=== PATIENT | female | born 1990 | race Caucasian/White ===

== ENCOUNTER → 2016-09-25 | Outpatient (REF) | payer OTHER ==
[~2016-09-25] MED LIST: ACET50TA PO; IBUP600T26 PO; MOTRIN; PERCOCET PO; PRENTAB9 PO
[2016-09-25 13:59] LABS: BASO % 0.5 % (0.0-1.0); EOS # 0.1 K/mm3 (0.0-0.50); EOS % 3.2 % (0.0-3.0); LARGE UNSTAINED CELL # 0.1 K/mm3 (0.0-0.4); LYMPH # 1.2 K/mm3 (1.5-6.5); LYMPH % 28.2 % (24.0-44.0); MEAN CORPUSCULAR HEMOGLOBIN 30.3 pg (27.0-33.0); MEAN CORPUSCULAR HGB CONC 33.8 g/dl (32.0-36.5); MEAN CORPUSCULAR VOLUME 89.7 fl (80.0-96.0); MONO # 0.2 K/mm3 (0.0-0.8); MONO % 5.8 % (0.0-5.0); NEUTROPHILS # 2.5 K/mm3 (1.8-7.7); NEUTROPHILS % 60.2 % (36.0-66.0); PLATELET COUNT, AUTOMATED 274 k/mm3 (150-450); RED CELL DISTRIBUTION WIDTH 12.1 % (11.5-14.5); WHITE BLOOD COUNT 4.1 K/mm3 (4.0-10.0)
[2016-09-26 12:45] LABS: HBsAg Prenatal NEGATIVE (NEGATIVE)
[2016-09-26 12:46] LABS: HIV SCREEN CENTAUR NEGATIVE (NEGATIVE)
== END ==
LOC: M LABDRWAD 12:13
PROVIDERS: ATTEND Advanced Practice Midwife
DX: Z34.81 Encounter for supervision of other normal pregnancy, first trimester (principal); Z36 Encounter for antenatal screening of mother

== ENCOUNTER 2016-10-24 18:46 | Emergency (ER) | payer OTHER ==
[~2016-10-24] VITALS: Ht 167.6 cm; Wt 54.0 kg
[2016-10-24] MEDS ORDERED: NS 1,000 ML IV ONE (20:15)
[2016-10-24] MEDS ORDERED: METOCLOPRAMIDE INJ 10MG/2ML VIAL (J2765) IV ONE (20:15)
[2016-10-24 20:48] LABS: BASO % 0.1 % (0.0-1.0); EOS % 0.4 % (0.0-3.0); LARGE UNSTAINED CELL % 0.4 % (0.0-4.0); LYMPH # 0.9 K/mm3 (1.5-6.5); LYMPH % 8.7 % (24.0-44.0); MEAN CORPUSCULAR HEMOGLOBIN 30.1 pg (27.0-33.0); MEAN CORPUSCULAR HGB CONC 34.2 g/dl (32.0-36.5); MEAN CORPUSCULAR VOLUME 88.1 fl (80.0-96.0); MONO # 0.2 K/mm3 (0.0-0.8); MONO % 2.4 % (0.0-5.0); NEUTROPHILS # 8.3 K/mm3 (1.8-7.7); NEUTROPHILS % 87.9 % (36.0-66.0); PLATELET COUNT, AUTOMATED 306 k/mm3 (150-450); RED CELL DISTRIBUTION WIDTH 12.3 % (11.5-14.5); WHITE BLOOD COUNT 9.4 K/mm3 (4.0-10.0)
[2016-10-24 21:10] LABS: ALBUMIN 3.6 GM/DL (3.2-5.2); ALBUMIN/GLOBULIN RATIO 1.06 (1.00-1.93); ALKALINE PHOSPHATASE 62 U/L (45-117); ALT/SGPT 20 U/L (12-78); AMYLASE 36 U/L (25-115); ANION GAP 11 MEQ/L (8-16); AST/SGOT 13 U/L (15-37); BILIRUBIN,DIRECT 0.2 MG/DL (0.0-0.2); BILIRUBIN,TOTAL 0.7 MG/DL (0.2-1.0); BLOOD UREA NITROGEN 11 MG/DL (7-18); CALCIUM LEVEL 9.1 MG/DL (8.5-10.1); CARBON DIOXIDE LEVEL 24 MEQ/L (21-32); CHLORIDE LEVEL 103 MEQ/L (98-107); CREATININE FOR GFR 0.73 MG/DL (0.55-1.02); GLOMERULAR FILTRATION RATE > 60.0 (>60); GLUCOSE, FASTING 101 MG/DL (70-105); POTASSIUM SERUM 3.8 MEQ/L (3.5-5.1); SODIUM LEVEL 138 MEQ/L (136-145)
[2016-10-24] MEDS ORDERED: REGL10TA6 PO (21:34)
[2016-10-24 21:46] VITALS: BP 91/57
== END 2016-10-24 21:52 | disposition home or self-care (01) ==
LOC: M ED 19:41
DX: R11.2 Nausea with vomiting, unspecified (principal); R19.7 Diarrhea, unspecified; I48.91 Unspecified atrial fibrillation; Z87.440 Personal history of urinary (tract) infections; Z88.2 Allergy status to sulfonamides; Z79.899 Other long term (current) drug therapy
CPT/HCPCS: 80048; 80076; 81001; 82150; 83690; 85025; 87086; 96374; 99282; J2765

== ENCOUNTER 2016-11-07 19:59 | Emergency (ER) | payer OTHER ==
[~2016-11-07] VITALS: Ht 170.2 cm; Wt 52.6 kg
[~2016-11-07 19:59] MED LIST changes: +REGL10TA6 PO
[2016-11-07] MEDS ORDERED: NS 1,000 ML IV ONE ×2 (20:30→21:45)
[2016-11-07] MEDS ORDERED: ACETAMINOPHEN TAB 650MG DOSE (2X325MG) PO ONE (20:30)
[2016-11-07] MEDS ORDERED: METOCLOPRAMIDE INJ 10MG/2ML VIAL (J2765) IV ONE (21:00)
[2016-11-07 21:12] LABS: BASO % 0.2 % (0.0-1.0); EOS % 0.7 % (0.0-3.0); LARGE UNSTAINED CELL # 0.1 K/mm3 (0.0-0.4); LARGE UNSTAINED CELL % 1.2 % (0.0-4.0); LYMPH # 0.4 K/mm3 (1.5-6.5); LYMPH % 6.9 % (24.0-44.0); MEAN CORPUSCULAR HEMOGLOBIN 30.9 pg (27.0-33.0); MEAN CORPUSCULAR HGB CONC 35.9 g/dl (32.0-36.5); MEAN CORPUSCULAR VOLUME 86.1 fl (80.0-96.0); MONO # 0.2 K/mm3 (0.0-0.8); MONO % 4.3 % (0.0-5.0); NEUTROPHILS # 4.2 K/mm3 (1.8-7.7); NEUTROPHILS % 86.7 % (36.0-66.0); PLATELET COUNT, AUTOMATED 177 k/mm3 (150-450); RED CELL DISTRIBUTION WIDTH 12.5 % (11.5-14.5); WHITE BLOOD COUNT 4.8 K/mm3 (4.0-10.0)
[2016-11-07 21:33] LABS: ANION GAP 9 MEQ/L (8-16); BLOOD UREA NITROGEN 8 MG/DL (7-18); CALCIUM LEVEL 8.3 MG/DL (8.5-10.1); CARBON DIOXIDE LEVEL 25 MEQ/L (21-32); CHLORIDE LEVEL 100 MEQ/L (98-107); CREATININE FOR GFR 0.71 MG/DL (0.55-1.02); GLOMERULAR FILTRATION RATE > 60.0 (>60); GLUCOSE, FASTING 103 MG/DL (70-105); HCG, SERUM QUANTITATIVE 63961 MIU/ML; POTASSIUM SERUM 3.3 MEQ/L (3.5-5.1); SODIUM LEVEL 134 MEQ/L (136-145)
--- NOTE | 2016-11-07 21:40 | REPUSA ---
Clinical history: Right upper quadrant pain. Findings: The pancreas is limited in visualization secondary to overlying bowel gas, but appears carl sly unremarkable. The liver demonstrates uniform echotexture and echogenicity, with no mass lesions. There is a simple cyst in the posterior right kidney measuring 3.3 x 1.3 x 2.4 cm. The gallbladder is unremarkable. The right kidney measures 11.6 cm in length and is unremarkable. The common bile duct measures 3 mm and is within normal limits. There is no ascites. Impression: Unremarkable ultrasound examination of the right upper quadrant. No acute abnormality. Si mple cyst in the posterior right lobe of the liver.
--- NOTE | 2016-11-07 21:50 | REPUSA ---
Clinical history: Pain. Findings: Real-time transabdominal and transvaginal ultrasound images of the pelvis were obtained. Th ere is a single live intrauterine gestation.The crown rump length measures 6.1 cm. heart rate o f 182 bpm. There is no evidence of a subchorionic hemorrhage. An anteverted uterus is noted. The cerv ix measures 4 cm in length and is closed. The right ovary measures 2.2 x 2.3 x 2.2 cm. The left ovary measures 2.0 x 2.5 x 1.9 cm. No adnexal masses are seen. Color Doppler flow is seen within both ova karime. There is no evidence of free fluid. Impression: Single live intrauterine measuring 12 weeks 4 days with estimated due date of 07/18/2016. No other gross abnormalities appreciated.
[2016-11-07] MEDS ORDERED: REGL10TA6 PO (23:27)
[2016-11-07 23:32] VITALS: BP 94/60
== END 2016-11-07 23:48 | disposition home or self-care (01) ==
LOC: M ED 21:27
DX: O26.891 Other specified pregnancy related conditions, first trimester (principal); R50.9 Fever, unspecified; O21.9 Vomiting of pregnancy, unspecified; Z3A.12 12 weeks gestation of pregnancy; O99.511 Diseases of the respiratory system complicating pregnancy, first trimester; J45.909 Unspecified asthma, uncomplicated; O99.411 Diseases of the circulatory system complicating pregnancy, first trimester; I49.9 Cardiac arrhythmia, unspecified; Z88.2 Allergy status to sulfonamides
CPT/HCPCS: 76705; 76801; 80048; 81001; 84702; 85025; 87086; 99283; J2765

== ENCOUNTER → 2016-12-04 | Outpatient (REF) | payer OTHER | LOC: M LAB REF 17:12 | PROVIDERS: ATTEND Advanced Practice Midwife | DX: O34.211 Maternal care for low transverse scar from previous cesarean delivery (principal) ==

== ENCOUNTER → 2017-01-07 | Outpatient (CLI) | payer OTHER ==
[~2017-01-07] MED LIST changes: +MACR100C43 PO
--- NOTE | 2017-01-08 01:27 | REP ---
Clinical: Anatomical evaluation. Comparison: 11/07/2016 . Findings: Examination demonstrates a single live intrauterine in cephalic presentation. motion is identified by technologist. Placenta is noted posteriorly and grade zero without evidence for placenta previa or abruption. Amniotic fluid volume is normal. Cervix measures 3.4 cm in length and appears closed. Nuchal cord identified. Gestational age by LMP 20 weeks 6 days with AZAR 05/21/2017 . Gestational age by current measurements 20 weeks 6 days with AZAR 05/21/2017 . FHR equals 147 beats per minute. BPD 5.0 cm 21 weeks 1 day HC 18.9 cm 21 weeks 1 day AC 16.2 cm 21 weeks 2 days FL 3.5 cm 21 weeks 1 day HL 3.3 cm 21 weeks 1 day HC/AC ratio 1.17 Estimated weight 405 grams ( 56 percentile). Anatomical assessment demonstrates normal structures including cranium, choroid plexus, cavum, cerebellum/posterior fossa, facial features, lungs, four-chamber heart/ventricular outflow tracts, diaphragm, stomach, cord insertion/three-vessel cord, kidneys/bladder, spine, and extremities. Impression: Single live intrauterine in cephalic presentation demonstrating appropriate interval growth. 2. Nuchal cord noted. 3. Anatomical assessment is complete and normal. 4. Sonologist raises the possibility of circumvallate placenta and demonstrates a single placental septation. Follow-up may be warranted. Signed by Sixto Quinn MD 01/08/2017 01:19 A
== END ==
LOC: M SMT 09:07
PROVIDERS: ATTEND Advanced Practice Midwife
DX: O34.211 Maternal care for low transverse scar from previous cesarean delivery (principal); Z3A.21 21 weeks gestation of pregnancy

== ENCOUNTER 2017-01-13 21:50 | Emergency (ER) | payer OTHER ==
[~2017-01-13] VITALS: Ht 170.2 cm; Wt 59.6 kg
[~2017-01-13 21:50] MED LIST changes: -MACR100C43 PO
[2017-01-13 21:51] VITALS: BP 115/60
[2017-01-13] MEDS ORDERED: MACR100C43 PO (22:39)
== END 2017-01-13 22:31 | disposition admitted as inpatient to this hospital (09) ==
LOC: M ED 21:50
DX: O99.89 Other specified diseases and conditions complicating pregnancy, childbirth and the puerperium (principal); R10.9 Unspecified abdominal pain; Z3A.21 21 weeks gestation of pregnancy; Z79.899 Other long term (current) drug therapy; Z88.2 Allergy status to sulfonamides

== ENCOUNTER 2017-01-13 22:06 | Outpatient (CLI) | payer OTHER ==
[~2017-01-13] VITALS: Ht 170.2 cm; Wt 54.0 kg
[2017-01-13 22:25] VITALS: BP 125/63
[2017-01-13] MEDS ORDERED: MACR100C43 PO (22:39)
[2017-01-13] MEDS ORDERED: NITROFURANTOIN (MACROBID) 100 MG CAP PO ONE (23:00)
== END 2017-01-13 23:00 | disposition home or self-care (01) ==
LOC: M LDO 22:06
PROVIDERS: ATTEND Obstetrics & Gynecology
DX: O99.89 Other specified diseases and conditions complicating pregnancy, childbirth and the puerperium (principal); R10.9 Unspecified abdominal pain; Z3A.21 21 weeks gestation of pregnancy; Z88.2 Allergy status to sulfonamides

== ENCOUNTER → 2017-02-19 | Outpatient (CLI) | payer OTHER ==
[~2017-02-19] MED LIST changes: +MACR100C43 PO
[2017-02-19 18:24] LABS: MEAN CORPUSCULAR HEMOGLOBIN 30.7 pg (27.0-33.0); MEAN CORPUSCULAR HGB CONC 33.8 g/dl (32.0-36.5); MEAN CORPUSCULAR VOLUME 90.9 fl (80.0-96.0); RED CELL DISTRIBUTION WIDTH 12.5 % (11.5-14.5)
== END ==
LOC: M SMT 11:01
PROVIDERS: ATTEND Obstetrics & Gynecology
DX: Z34.82 Encounter for supervision of other normal pregnancy, second trimester (principal); Z36 Encounter for antenatal screening of mother

== ENCOUNTER → 2017-04-19 | Outpatient (REF) | payer OTHER ==
[~2017-04-19] MED LIST changes: +TUMS500C PO
== END ==
LOC: M LAB REF 16:59
PROVIDERS: ATTEND Advanced Practice Midwife
DX: O34.211 Maternal care for low transverse scar from previous cesarean delivery (principal)

== ENCOUNTER 2017-05-20 05:40 | Inpatient (IN) | payer OTHER ==
[~2017-05-20] VITALS: Ht 170.2 cm; Wt 68.0 kg
[2017-05-20] VITALS (9 sets, daily range): BP systolic 98–145; BP diastolic 53–84
[2017-05-20] MEDS ORDERED: LR 1,000 ML IV ONE (06:30)
[2017-05-20] MEDS ORDERED: BICITRA 30ML SOLN UDC PO ONE (06:30)
[2017-05-20 06:38] LABS: MEAN CORPUSCULAR HEMOGLOBIN 27.7 pg (27.0-33.0); MEAN CORPUSCULAR HGB CONC 32.3 g/dl (32.0-36.5); MEAN CORPUSCULAR VOLUME 85.6 fl (80.0-96.0); PLATELET COUNT, AUTOMATED 348 10^3/uL (150-450); RED CELL DISTRIBUTION WIDTH 13.3 % (11.5-14.5); WHITE BLOOD COUNT 8.2 10^3/uL (4.0-10.0)
[2017-05-20 06:56] LABS: METHADONE URINE NEGATIVE (NEGATIVE)
[2017-05-20] MEDS ORDERED: LR 1,000 ML IV SCH (07:00)
[2017-05-20] MEDS ORDERED: MORPHINE PRES-FREE INJ 10 MG/10 ML VIAL (J2274) As Ordered ONE (07:11)
[2017-05-20] MEDS ORDERED: OXYTOCIN INJ 10 UNITS/ML VIAL (J2590) As Ordered ONE ×2 (07:59→08:38)
[2017-05-20] MEDS ORDERED: PHENYLephrine HCL 500 MCG/5 ML (100MCG/ML) SYRINGE (J2370) As Ordered ONE ×3 (07:59→08:33)
[2017-05-20] MEDS ORDERED: ONDANSETRON 4MG/2ML VIAL (J2405) As Ordered ONE (08:33)
[2017-05-20] MEDS: LR 1,000 ML IV SCH ×3 (08:49→22:36)
[2017-05-20] MEDS ORDERED: PERCOCET PO (08:51)
[2017-05-20] MEDS ORDERED: IBUP1TAB7 PO (08:52)
[2017-05-20] MEDS ORDERED: OXYTOCIN DRIP 30 UNITS in APPROPRIATE DILUENT 1 EA IV ONE (09:00)
[2017-05-20] MEDS: PRENATAL VITAMINS CHEWABLE TABLET PO SCH (09:00)
[2017-05-20] MEDS ORDERED: MEASLES,MUMPS,RUBELLA VACCINE INJ (MMR-II) (90707) SC SCH (09:00)
[2017-05-20] MEDS ORDERED: PERCOCET 5MG/325MG TAB PO PRN ×2 (09:00→09:30)
[2017-05-20] MEDS ORDERED: MOM 30ML SUSPENSION UDC PO PRN (09:00)
[2017-05-20] MEDS ORDERED: RHOGAM 300 MCG (1500 IU) INJ (J2790) IM SCH (09:00)
[2017-05-20] MEDS: KETOROLAC 30 MG/ML VIAL (J1885) IV SCH ×3 (09:00→21:20)
[2017-05-20] MEDS ORDERED: DOCUSATE SODIUM 100 MG CAP PO PRN (09:00)
[2017-05-20] MEDS ORDERED: ONDANSETRON 4MG/2ML VIAL (J2405) IV PRN ×2 (09:00→09:30)
[2017-05-20] MEDS ORDERED: NALBUPHINE HCL 10 MG/ML AMP (J2300) IV PRN (09:30)
[2017-05-20] MEDS ORDERED: HYDROmorphone HCL 1 MG/ML SYRINGE (J1170) IV PRN (09:30)
[2017-05-20] MEDS ORDERED: MEPERIDINE INJ 25 MG/ML VIAL (J2175) IV PRN (09:30)
[2017-05-20] MEDS ORDERED: diphenhydrAMINE INJ 50MG/ML VIAL (J1200) IV PRN (09:30)
[2017-05-20] MEDS ORDERED: fentaNYL 100 MCG/2 ML INJECTION (J3010) IV PRN (09:30)
[2017-05-20] MEDS ORDERED: NALBUPHINE HCL 10 MG/ML AMP (J2300) IV ONE (16:15)
[2017-05-21 02:00] VITALS: BP 106/56
[2017-05-21] MEDS: KETOROLAC 30 MG/ML VIAL (J1885) IV SCH (02:58)
[2017-05-21 06:00] VITALS: BP 115/64
[2017-05-21 07:06] LABS: MEAN CORPUSCULAR HEMOGLOBIN 27.2 pg (27.0-33.0); MEAN CORPUSCULAR HGB CONC 31.7 g/dl (32.0-36.5); PLATELET COUNT, AUTOMATED 281 10^3/uL (150-450); RED CELL DISTRIBUTION WIDTH 13.3 % (11.5-14.5); WHITE BLOOD COUNT 8.9 10^3/uL (4.0-10.0)
[2017-05-21] MEDS: PRENATAL VITAMINS CHEWABLE TABLET PO SCH (08:12)
[2017-05-21] MEDS: LR 1,000 ML IV SCH (08:49)
[2017-05-21 10:15] VITALS: BP 105/58
[2017-05-21] MEDS: IBUPROFEN 800 MG TAB PO SCH ×2 (13:24→18:49)
[2017-05-21] MEDS: PERCOCET 5MG/325MG TAB PO PRN ×2 (13:31→20:22)
[2017-05-21 14:00] VITALS: BP 118/57
[2017-05-21 18:17] VITALS: BP 111/60
[2017-05-21 22:00] VITALS: BP 107/57
[2017-05-22 02:00] VITALS: BP 103/55
[2017-05-22] MEDS: IBUPROFEN 800 MG TAB PO SCH (02:33)
[2017-05-22 06:00] VITALS: BP 110/61
[2017-05-22] MEDS: PRENATAL VITAMINS CHEWABLE TABLET PO SCH (08:44)
--- NOTE | 2017-05-22 16:45 | DSES ---
DATE OF ADMISSION: 05/20/2017 DATE OF DISCHARGE: 05/22/2017 HISTORY: 27-year-old female, 39 4/7 weeks gestation presents for elective repeat caesarean section. Patient has a history of one prior section. HOSPITAL COURSE: On 05/20/2017, the patient underwent repeat low transverse section without complication. Her post-operative course was unremarkable. She had adequate return of bladder and bowel function. She was deemed stable for discharge on post-operative day 2. ADMISSION DIAGNOSIS: term, prior . DISCHARGE DIAGNOSIS: Delivery procedure. Repeat low transverse section. DISPOSITION: Patient will followup with Dr. Anaya in 2 weeks. Instructions were reviewed.
== END 2017-05-22 10:50 | disposition home or self-care (01) | DRG 766 ==
LOC: M LDI 05:40 → M OBS 10:43
PROVIDERS: ADMIT Obstetrics & Gynecology; ATTEND Obstetrics & Gynecology
PROC: 10D00Z1 Extraction of Products of Conception, Low, Open Approach (ICD-10-PCS; principal; 2017-05-20 07:30)
DX: O34.211 Maternal care for low transverse scar from previous cesarean delivery (principal); Z37.0 Single live birth; Z3A.40 40 weeks gestation of pregnancy

== ENCOUNTER → 2019-11-17 | Outpatient (REF) | payer OTHER ==
[~2019-11-17] MED LIST changes: -ACET50TA PO; +COLA100C5 PO; +IBUP1TAB7 PO; +IBUP80TA PO; +MAPA500T17 PO; +OXYC1TAB23 PO
== END ==
LOC: M SFHCWAGY 14:57
PROVIDERS: ATTEND Obstetrics & Gynecology
DX: Z01.419 Encounter for gynecological examination (general) (routine) without abnormal findings (principal); Z12.4 Encounter for screening for malignant neoplasm of cervix
CPT/HCPCS: 58301; 87624; G0123; G0463

== ENCOUNTER 2019-11-27 11:33 | Day surgery (SDC) | payer OTHER ==
[~2019-11-27] VITALS: Ht 170.2 cm; Wt 50.3 kg
[~2019-11-27 11:33] MED LIST changes: -COLA100C5 PO; -IBUP80TA PO; +LR 1,000 ML IV SCH
[2019-11-27 12:01] LABS: HEMATOCRIT 42.4 % (36.0-47.0); MEAN CORPUSCULAR HEMOGLOBIN 30.8 pg (27.0-33.0); MEAN CORPUSCULAR VOLUME 93.4 fl (80.0-96.0); PLATELET COUNT, AUTOMATED 261 10^3/uL (150-450); RED BLOOD COUNT 4.54 10^6/uL (4.00-5.40)
[2019-11-27 12:18] LABS: HCG, SERUM QUALITATIVE NEGATIVE (NEGATIVE)
[2019-11-27] MEDS ORDERED: HYDROmorphone HCL 2 MG/ML 1ML VIAL (J1170) As Ordered ONE (13:27)
[2019-11-27] MEDS ORDERED: fentaNYL 100 MCG/2 ML INJECTION (J3010) As Ordered ONE (13:27)
[2019-11-27] MEDS ORDERED: MIDAZOLAM INJ 2MG/2ML VIAL (J2250 PER 1MG) As Ordered ONE (13:27)
[2019-11-27] MEDS ORDERED: dexameTHASONE 4 MG/ML 1ML VIAL (J1100 PER 1MG) As Ordered ONE (13:28)
[2019-11-27] MEDS ORDERED: ONDANSETRON 4MG/2ML VIAL As Ordered ONE (13:28)
[2019-11-27] MEDS ORDERED: ROCURONIUM BROMIDE 50 MG/5 ML VIAL As Ordered ONE (13:28)
[2019-11-27] MEDS ORDERED: KETOROLAC 60 MG/2 ML VIAL As Ordered ONE (13:28)
[2019-11-27] MEDS ORDERED: LIDOCAINE 2% 100MG/5ML SDV (FOR ANES.) As Ordered ONE (13:28)
[2019-11-27] MEDS ORDERED: propofoL 200 MG/20 ML VIAL As Ordered ONE (13:28)
[2019-11-27] MEDS ORDERED: BUPIVACAINE HCL 0.25% 30ML VIAL As Ordered ONE (14:18)
[2019-11-27] MEDS ORDERED: OXYC1TAB23 PO (14:33)
[2019-11-27] MEDS ORDERED: IBUP80TA PO (14:34)
[2019-11-27] MEDS ORDERED: COLA100C5 PO (14:34)
[2019-11-27] MEDS ORDERED: ePHEDrine SULFATE 25 MG/5 ML(5MG/ML) SYRINGE As Ordered ONE (14:49)
[2019-11-27] MEDS ORDERED: SUGAMMADEX SODIUM 500 MG/5 ML VIAL (BRIDION) As Ordered ONE (14:51)
[2019-11-27] MEDS ORDERED: ACETAMINOPHEN 1000MG 100ML IV BTL (OFIRMEV) (J0131 PER 10MG) As Ordered ONE (14:55)
[2019-11-27] MEDS ORDERED: oxyCODONE 5MG TAB PO PRN (15:45)
[2019-11-27] MEDS ORDERED: LR 1,000 ML IV SCH ×2 (15:45→16:00)
[2019-11-27] MEDS ORDERED: ONDANSETRON 4MG/2ML VIAL IV PRN (15:45)
[2019-11-27] MEDS ORDERED: fentaNYL 100 MCG/2 ML INJECTION (J3010) IV PRN (15:45)
[2019-11-27 18:05] VITALS: BP 99/54
== END 2019-11-27 18:15 | disposition home or self-care (01) ==
LOC: M SDC 11:33
PROVIDERS: ATTEND Obstetrics & Gynecology
DX: Z30.2 Encounter for sterilization (principal); G43.909 Migraine, unspecified, not intractable, without status migrainosus; Z88.2 Allergy status to sulfonamides; Z91.013 Allergy to seafood; F17.200 Nicotine dependence, unspecified, uncomplicated
CPT/HCPCS: 36415; 58661; 84703; 85027; 86850; 86900; 86901; 88302; J0131; J1100; J1170; J1885; J2250; J2405; J3010

== ENCOUNTER → 2020-08-17 | Outpatient (CLI) | payer OTHER ==
[~2020-08-17] MED LIST changes: +COLA100C5 PO; +IBUP80TA PO; -LR 1,000 ML IV SCH
--- NOTE | 2020-08-17 15:41 | REP ---
INDICATION: N63.0 RIGHT BREAST NODULE. Right breast nodule x3 weeks. Purvis to gum ball size. Inferior medial right breast 5 o'clock position. COMPARISON: No comparison breast imaging. TECHNIQUE: A skin marker is affixed to the skin at the site of the palpable lump in the right breast. Routine views of the right breast are augmented by magnified focal spot-compression images. 3D tomography is carried out. Targeted right breast sonography is performed. This mammogram was interpreted with the aid of an FDA-approved computer-aided detection system. FINDINGS: Mammography images demonstrate heterogeneously dense breast parenchyma in a confluent pattern which may inhibit the sensitivity of mammography. No mass lesion is visible at site of the palpable lump or elsewhere in the right breast on mammography. No architectural distortion or micro calcific grouping is seen. No worrisome skin changes appreciated. 3D tomography images show no additional abnormality. The Volpara volumetric breast density pattern is C. Targeted ultrasound: Targeted sonography of the right breast is performed. In the region of 5-6 o'clock, there is a single slightly prominent duct. Heterogeneous fibroglandular background echotexture is seen. No cyst, mass, acoustic shadowing or other suspicious finding. IMPRESSION: BIRADS/ACR category 2 benign right breast mammographic and sonographic findings. This patient's Tyrer-Cuzick lifetime breast cancer risk assessment score is 11.1%. RECOMMENDATION: Repeat screening mammography recommended 1 year (for women over 40). Clinical follow-up is advised. The patient letter being requested is M2 dense. <Electronically signed by Kei Devine > 08/17/20 [id number]
== END ==
LOC: M WHC 13:57
PROVIDERS: ATTEND Physician Assistant
DX: B52.9 Plasmodium malariae malaria without complication (principal)

== ENCOUNTER → 2020-10-14 | Outpatient (CLI) | payer OTHER ==
--- NOTE | 2020-10-14 11:06 | REP ---
INDICATION: N63.20 LEFT BREAST MASS; N83.20,N83.10 DORON BREAST MASS. Two palpable abnormalities in the left breast on clinician breast exam. Palpable abnormality in the right breast 5:30 o'clock position, 2.5 cm from the nipple. Comparison right breast mammography and sonography August 17, 2020. No comparison left breast imaging. COMPARISON: As above. TECHNIQUE: Diagnostic mammography left breast is performed with skin marker is affixed to the skin at the site of the 2 palpable abnormality is marked by Dr. Fuentes. CC mL and MLO projection images are deployed including magnified spot views and 3D tomography. Targeted left breast and right breast sonography is performed. This mammogram was interpreted with the aid of an FDA-approved computer-aided detection system. FINDINGS: Diagnostic mammographic images of the left breast demonstrate heterogeneously dense breast parenchyma similar to that seen on the right. This may inhibit the sensitivity of mammography. No mass or spiculation is seen. No microcalcification or worrisome skin changes observed in the left breast mammographically. The Volpara volumetric breast density pattern is C. Targeted ultrasound: Targeted left breast sonography is performed in the area the palate palpable lumps on clinician breast exam. The left breast is scanned from 9:00 to 12:00 and retroareolar region. Heterogeneous fibroglandular tissue is seen. There are 1 or 2 prominent ducts in the retroareolar region. No mass or cyst is observed. No suspicious sonographic finding is seen in the left breast. On the right, targeted sonography in the region of the palpable lump at 5-530 demonstrates a hypoechoic nodule 1.1 x 0.6 x 1.1 cm, 2.1 cm from the nipple. Its margins are well circumscribed. There is enhanced through transmission but hypoechoic internal texture consistent with a solid nodule. Its long axis is parallel to the skin. It is most compatible with fibroadenoma but nonspecific. IMPRESSION: BIRADS/ACR category 2 benign left breast mammographic and sonographic findings. BI-RADS category 4 suspicious right breast ultrasound findings. Solid 1.1 cm nodule at the site of the palpable lump seen on today's repeat ultrasound.. This patient's Tyrer-Cuzick lifetime breast cancer risk assessment score is 11.0%. RECOMMENDATION: Ultrasound-guided needle biopsy of the right breast nodule with clip placement.. The patient letter being requested is M4 dense. <Electronically signed by Kei Devine > 10/14/20 0828
== END ==
LOC: M WHC 07:59
PROVIDERS: ATTEND Surgery
DX: R92.8 Other abnormal and inconclusive findings on diagnostic imaging of breast (principal); N63.14 Unspecified lump in the right breast, lower inner quadrant; N63.22 Unspecified lump in the left breast, upper inner quadrant
CPT/HCPCS: 76642; 77065; G0279

== ENCOUNTER → 2020-11-02 | Outpatient (CLI) | payer OTHER ==
[2020-11-02 15:06] VITALS: BP 108/70
--- NOTE | 2020-11-02 15:58 | REP ---
INDICATION: R92.8 ABN RIGHT MAMMO/US GUIDED BX. COMPARISON: 10/14/2020. TECHNIQUE: Real-time sonographic guidance utilized by Dr. Fuentes for biopsy of right breast. FINDINGS: Dr. Fuentes utilized ultrasound for biopsy of the right breast. IMPRESSION: Dr. Fuentes utilized ultrasound for biopsy of the right breast.I was not present for the procedure. RECOMMENDATION: Clinical follow-up. <Electronically signed by Jozef Fermin > 11/02/20 1550
--- NOTE | 2020-11-02 15:59 | REP ---
INDICATION: R92.8 ABN RIGHT BREAST MAMMO/US GUIDED BX/CK CLIP PLCMT. COMPARISON: 08/17/2020. TECHNIQUE: ML and CC views right breast performed FINDINGS: Biopsy clip is seen in the inferomedial right breast following ultrasound-guided biopsy today. IMPRESSION: Biopsy clip inferomedial right breast following ultrasound-guided biopsy today. RECOMMENDATION: Clinical follow-up. <Electronically signed by Jozef Fermin > 11/02/20 1311
--- NOTE | 2020-11-05 20:51 | ROOPDOC ---
[facility] Report Of Operation Report of Operation DATE OF PROCEDURE: 11/02/20 DIAGNOSIS: right breast suspicious lesion PROCEDURE: ultrasound guided biopsy of the right breast suspicious lesion with clip placement SURGEON: Robert Guillermo BLOOD LOSS: minimal COMPLICATIONS: none Lidocaine 1% LOT [id number] Expiration 05/2021 Sodium Bicarbonate 8.4% LOT [id number] Expiration 08/2021 Hydromark clip LOT [id number] Expiration 05/2023 SHAPE: 3 Bx device: BARD [id number] x10 cm LOT [id number] Expiration 05/2023 Informed consent was obtained. The most common risk and possible complications including bleeding, hematoma, bruising, infection, injury to surrounding structures were explained to the patient and the patient expressed understanding. Patient was placed on the bed in the supine position. Appropriate time out was done stating patients name, date of , and the procedure to be performed. The right breast was prepped and draped in the usual fashion. The ultrasound was used to confirm the location of the lesion in the right breast at 5:30 2.5 centimeters from the nipple. Plain Lidocaine 1% and 8.4% sodium bicarbonate 10:1 mix was used to anesthetize the skin, the biopsy site and tissues along the anticipated biopsy tract. Small skin incision was made with blade number 11. BARD Marquee 14G cannula with introducer ([id number]) was inserted through the incision and advanced under the ultrasound guidance to position immediately adjacent to the lesion. Next, the introducer was removed and BARD Marquee 14G biopsy device was places in the cannula. Pre-biopsy imaging, and post-biopsy imaging were captured. Five good core biopsies were taken at various levels of the lesion. Specimen was placed in formaldehyde, labeled with appropriate biopsy site and patients name, and sent to pathology for evaluation. Next, the biopsy device was withdrawn and a clip introducer was inserted into the biopsy site via the cannula. SHAPE 3 Hydromark clip was deployed under sonographic guidance. Post-clip placement image was captured. Manual pressure over the biopsy cavity and tract was held after the clip introducer was withdrawn. No bleeding was noted upon removal of the pressure. Post-biopsy mammogram of the right breast was obtained and showed clip in expected position. Postprocedural dressing was placed. Patient tolerated procedure well. Discharge instructions were discussed with the patient and the patient expressed understanding. ROBERT GUILLERMO DO November 05, 2020 20:51
== END ==
LOC: M WHCPRO 13:01
PROVIDERS: ATTEND Surgery
DX: N60.21 Fibroadenosis of right breast (principal)